=== PATIENT | female | born 1955 | race African-American/Black ===

== ENCOUNTER → 2018-06-10 | Outpatient (CLI) | payer BC ==
--- NOTE | 2018-06-10 16:00 | PCVCIMAG ---
APPROVED REPORT Study performed: 06/10/2018 14:36:00 Exam: Stress Echocardiogram Indication: Dyspnea , Palpitations Stress Nurse: Sonam Kimble RN Status: routine Ht: 4 ft 11 in HR: 56 bpm BP: 122/84 mmHg Rhythm: Sinus Bradycardia Procedure The patient underwent an Exercise Stress Test using the Rahul Protocol. Blood pressure, heart rate, and EKG were monitored. An Echocardiogram was performed by sewing pattern layout technician in four stages in quad fashion. At peak stress, four selected images were obtained and placed side by side with resting images for comparison. Stress Test Details Stress Test: Exercise stress testing was performed using a Rahul protocol. HR Resting HR: 56 bpmMax Heart Rate (APMHR): 158 bpm Max HR Achieved: 155 bpmTarget HR (85% APMHR): 134 bpm % of APMHR: 98 Recovery HR: 81 bpm HR response to stress: Abnormal HR response to stress BP Resting BP: 122/84 mmHg Max BP: 160/80 mmHg Recovery BP: 150/76 mmHg ECG Resting ECG: Sinus Rhythm Stress ECG: Sinus Rhythm ST Change: Normal Arrhythmia: None Recovery ECG: Sinus Rhythm Recovery ST Change: Normal Recovery Arrhythmia: None Clinical Reason for Termination: Maximal effort Stress Symptoms: Dyspnea Exercise duration: 7 min sec Highest Stage Achieved: Stage 3: 3.4 mph at 14% grade. Exercise capacity: 10 METs Overall Exercise Capacity for Age: Normal Scale: Sedentary Angina Score: None Pre-Stress Echo The resting Echocardiogram showed normal left ventricular contractility with an estimated Ejection Fraction of about >55%. Normal wall motion in all segments on baseline images. Post-Stress Echo The stress Echocardiogram showed normal left ventricular contractility with an estimated Ejection Fraction of about 65%. Normal augmentation of wall motion in all segments on post stress images. Clinical No clinical or ECG evidence for ischemia. Conclusion Clinical Response: Non-ischemic Exercise Capacity: Average Stress ECG Response: Non-ischemic Stress Echo Images: Non-ischemic The left ventricle is normal in size and wall thickness in both the rest and stress images. Other Information Study Quality: Adequate <Conclusion> The left ventricle is normal in size and wall thickness in both the rest and stress images.
== END | disposition home or self-care (01) ==
LOC: PCVCIMAG 14:17
PROVIDERS: ATTEND Internal Medicine Cardiovascular Disease
DX: R06.00 Dyspnea, unspecified (principal); R00.2 Palpitations; I10 Essential (primary) hypertension
CPT/HCPCS: 93325; 93351